=== PATIENT | male | born 1955 | race Caucasian/White ===

== ENCOUNTER 2024-12-13 17:51 | Emergency (ER) | payer MEDICARE ==
[2024-12-13] MEDS: Orphenadrine 60 MG/2 ML Inj IM ONE (19:16)
== END 2024-12-13 19:26 | disposition home or self-care (01) ==
LOC: LB.ED 17:51
DX: S01.01XA Laceration without foreign body of scalp, initial encounter (principal); Z91.018 Allergy to other foods; Z91.048 Other nonmedicinal substance allergy status; Z79.84 Long term (current) use of oral hypoglycemic drugs; Z79.899 Other long term (current) drug therapy; W00.0XXA Fall on same level due to ice and snow, initial encounter
CPT/HCPCS: 12002; 70450; 96372; 99284; A0425; A0429; J2360